=== PATIENT | female | born 1975 | race Caucasian/White ===

== ENCOUNTER → 2019-02-24 | Outpatient (CLI) | payer OTHER ==
--- NOTE | 2019-02-24 16:08 | RAD ---
EXAM DESCRIPTION: KUB CLINICAL HISTORY: 43 years Female, CALCULOUS KIDNEY STONES COMPARISON: None. FINDINGS: Moderate amount of colonic stool and gas. The kidneys are partially obscured by superimposed bowel contents, no left or right-sided nephrolithiasis. There are a few calcifications in the right side of the pelvis which probably represent simply limits. No acute bone lesion. IMPRESSION: Probable pelvic phleboliths, but no apparent urinary tract calculus. If clinical suspicion persists, noncontrast CT should be considered. Electronically signed by: Moisés Ceja MD 02/24/2019 4:07 PM [facility]
== END ==
LOC: RAD 13:09
PROVIDERS: ATTEND Urology
DX: N20.0 Calculus of kidney (principal)

== ENCOUNTER → 2019-03-04 | Outpatient (CLI) | payer OTHER ==
--- NOTE | 2019-03-05 13:42 | CT ---
EXAM DESCRIPTION: Abdoment/Pelvis w/o Contrast: Computed Tomography. CLINICAL HISTORY: 43 years Female RENAL STONES COMPARISON: KUB 24 February 2019. TECHNIQUE: Spiral-axial scans 2.5 x 2.5 mm intervals through the abdomen and pelvis without oral or IV contrast. Coronal and sagittal 2.0 mm reconstructions. Total Exam DLP: 1124.05 mGy-cm. This exam was performed according to our departmental CT dose-optimization program which includes automated exposure control, adjustment of the mA and/or kV according to patient size and/or use of iterative reconstruction technique; to reduce radiation dose to as low as reasonably achievable (ALARA). FINDINGS: Lung bases and pleura: Bibasilar parenchymal pleural scarring. No effusion. Liver, stomach, spleen, and adrenal glands: Long axis right lobe liver 18.4 cm. No focal lesions. Moderate size gastric hiatal hernia. Desiccated contrast material or food or calcifications lining the mucosa of the distal stomach. Other organs are negative. Pancreas, Gallbladder, and Ducts: Gallbladder in the fossa with no fluid. Normal caliber of the duct and pancreas is unremarkable. Kidneys and Ureters: No radiodense stones in the left kidney and no hydronephrosis. 3 mm radiodense stone upper collecting system right kidney with smaller radiodense stones or gravel in the mid and lower kidney. No hydronephrosis. No perinephric stranding or fluid bilaterally no radiodense stones are distention of the ureters. Mesentery: No free air or free fluid or fatty stranding or enlarged nodes. Aorta: Normal outer caliber. Small Bowel: Unremarkable. Terminal Ileum/Cecum: Normal caliber. Minimal radiodensity in the appendix. No surrounding inflammatory changes. Colon: Diverticula from the cecum to the rectum. Minimal to moderate fecal matter in the descending colon increasing in the sigmoid which is markedly redundant and the rectum. No complications. Pelvic Organs: No radiodense stones in the urinary bladder. Prior hysterectomy. Ovaries visualized. Spine and Bony Pelvis: Spondylosis in the distal thoracic spine and at L5-S1. Lumbar scoliosis. Abdominal Wall/Back Soft Tissues: Large body habitus. Umbilical diastases not containing bowel. Bilateral inguinal region lymph nodes. Bilateral fatty inguinal hernias not containing bowel. IMPRESSION: 1. At least 3 radiodense stones in the right kidney with the largest measuring 3 mm in the upper pole. Perinephric tissues are unremarkable. No hydronephrosis bilaterally or hydroureter. No radiodense stones in the urinary bladder. 2. Moderate constipation distal colon increasing in the rectosigmoid with marked redundancy of the sigmoid. Diffuse diverticular proximal to distal with no complications. 3. Mild hepatomegaly with normal hepatic density and no large mass lesions. 4. Moderate size gastric hiatal hernia. Distal stomach with old contrast, radiodense food, or mucosal calcifications. Electronically signed by: Sathya Gutierrez MD 03/05/2019 1:40 PM [facility]
== END | disposition home or self-care (01) ==
LOC: CT 13:18
PROVIDERS: ATTEND Urology
DX: N20.0 Calculus of kidney (principal)